=== PATIENT | male | born 1985 | race African-American/Black ===

== ENCOUNTER 2016-11-12 04:56 | Emergency (ER) | payer OTHER, BC ==
[~2016-11-12] VITALS: Ht 185.4 cm; Wt 87.0 kg
[2016-11-12] MEDS ORDERED: IBUPROFEN 800MG TABLET PO ONE (06:15)
[2016-11-12 07:31] VITALS: BP 129/77
== END 2016-11-12 07:33 | disposition home or self-care (01) ==
LOC: ER 04:56
DX: S86.912A Strain of unspecified muscle(s) and tendon(s) at lower leg level, left leg, initial encounter (principal); Z88.8 Allergy status to other drugs, medicaments and biological substances; W50.1XXA Accidental kick by another person, initial encounter; Y93.89 Activity, other specified; Y99.9 Unspecified external cause status; Y92.89 Other specified places as the place of occurrence of the external cause
CPT/HCPCS: 93971; 99284